=== PATIENT | female | born 1985 | race Caucasian/White ===

== ENCOUNTER 2017-05-10 11:51 | Outpatient (CLI) | payer OTHER ==
[~2017-05-10] VITALS: Ht 162.6 cm; Wt 88.2 kg
[2017-05-10 11:56] VITALS: Ht 162.6 cm; Wt 88.2 kg
[2017-05-10] MEDS ORDERED: PREN-93 PO (11:57)
[2017-05-10 12:48] VITALS: BP 110/66; PULSE 102; RESP 18
--- NOTE | 2017-05-10 12:51 | RADRPT ---
PROCEDURE: OB ultrasound for biophysical profile CLINICAL INDICATION: Post dates. TECHNIQUE: Multiple sonographic images of the pelvis were obtained. Transabdominal view of the gr avid uterus are available for review. The images were reviewed on a PACS workstation. COMPARISON: OB ultrasound from the same date. FINDINGS: breathing movement = 2/2 tone = 2/2 motion = 2/2 Quantitative amniotic fluid volume = 2/2 RM = 12.5 cm Single live intrauterine with cardiac activity at 165 beats per minute. There is a posterior placenta without previa or abruption. IMPRESSION: 1. Single living intrauterine gestation in cephalic position. 2. Biophysical profile = 8/8. 3. RM = 12.5 cm. RPTAT: [facility] Physician Alysa Date Time Electronically viewed and signed by Physician Alysa on 05/10/2017 12:51 /
--- NOTE | 2017-05-10 12:51 | RADRPT ---
PROCEDURE: OB ultrasound for biophysical profile CLINICAL INDICATION: Post dates. TECHNIQUE: Multiple sonographic images of the pelvis were obtained. Transabdominal view of the gr avid uterus are available for review. The images were reviewed on a PACS workstation. COMPARISON: OB ultrasound from the same date. FINDINGS: breathing movement = 2/2 tone = 2/2 motion = 2/2 Quantitative amniotic fluid volume = 2/2 MR = 12.5 cm Single live intrauterine with cardiac activity at 165 beats per minute. There is a posterior placenta without previa or abruption. IMPRESSION: 1. Single living intrauterine gestation in cephalic position. 2. Biophysical profile = 8/8. 3. RM = 12.5 cm. RPTAT: [facility] Physician Alysa Date Time Electronically viewed and signed by Physician Alysa on 05/10/2017 12:51 /
--- NOTE | 2017-05-10 12:53 | RADRPT ---
PROCEDURE: US OB. CLINICAL INDICATION: Post dates. TECHNIQUE: Multiple sonographic images of the pelvis were obtained. Transabdominal imaging only w as performed. The images were reviewed on a PACS workstation. COMPARISON: No prior studies are available for comparison. FINDINGS: There is a single living intrauterine gestation in cephalic position. There is an posterior placenta. There is no evidence of previa. Adequate amnionic fluid is demonstrated. The amniotic fluid index is 12.5 cm. Active cardiac motion is seen at 165 beats per minute. Estimated weight is 3800 plus or minus 570 g The biparietal diameter is 9.73 cm. The head circumference is 34.26 cm. The abdominal circumference is 35.83 cm. The femur length is 7.54 cm. Consistent with: 86-qnau-9-day gestation IMPRESSION: 1. Single living intrauterine gestation in cephalic position with a mean gestational age by ultraso und of 39 weeks 3 days plus or minus 19 days with estimated date of delivery of 05/14/2017 by ultras ound criteria. RPTAT: [facility] Physician Alysa Date Time Electronically viewed and signed by Physician Alysa on 05/10/2017 12:53 /
--- NOTE | 2017-05-10 13:42 | PN ---
Triage Information Date/Time Reason for visit: NST BPP postdate Weeks of Gestation 40+ /Para 1/0 Diabetes: none Hypertention: none Objective Vital Signs Date Time Temp Pulse Resp B/P Pulse Ox O2 Delivery O2 Flow Rate FiO2 05/10/17 12:48 98.3 102 18 110/66 100 Room Air Heart Rate: 140's Contractions: None Disposition: Discharge Assessment/Plan NST reactive BPP 02/05 40+wks She is scheduled for Induction on saturday . Instructions and precautions extensively discussed JESSICA HESS M.D. May 10, 2017 13:42
== END 2017-05-10 13:45 | disposition home or self-care (01) ==
LOC: OBT 11:51 → L-D 11:51 → OBT 13:45
PROVIDERS: ATTEND Specialist
DX: O48.0 Post-term pregnancy (principal); Z3A.40 40 weeks gestation of pregnancy
CPT/HCPCS: 76815; 76818; Z7500; G0463

== ENCOUNTER 2017-05-13 08:00 | Inpatient (IN) | payer OTHER ==
[~2017-05-13] VITALS: Ht 157.5 cm; Wt 88.0 kg
[~2017-05-13 08:00] MED LIST: PREN-93 PO
--- NOTE | 2017-05-13 08:53 | HP ---
Date/Time of Note Date/Time of Note DATE: 05/13/17 TIME: 08:48 OB - History Hx of Present Free Text/Dictation 31 y/o 1,EDC 05/07/17 admitted for induction of labor for postdates. EFW 3,800 grs Last Menstrual Period: Aug 07, 2016 Estimated Due Date: May 07, 2017 : 1 Care: Good Care Ultrasounds: Normal mid trimester US Obstetrical Complications: None Medical Complications: None Past Family/Social History * Past Medical, Surgical, Family and Obstetric Histories reviewed from chart. Blood Type: O+ Rubella: immune RPR/VDRL: Negative GBS Status: Negative HBsAG: Negative (Cervix;closed Vx, high) SARABJIT ORELLANA MD May 13, 2017 08:53
[2017-05-13 08:55] VITALS: BP 109/64; PULSE 105; RESP 18; Ht 157.5 cm; Wt 88.0 kg
[2017-05-13] MEDS ORDERED: IBUPROFEN 600 MG TAB PO PRN (09:00)
[2017-05-13] MEDS ORDERED: METHYLERGONOVINE 0.2 MG INJ IM PRN (09:00)
[2017-05-13] MEDS ORDERED: CARBOPROST 250 MCG INJ IM PRN (09:00)
[2017-05-13] MEDS ORDERED: MISOPROSTOL 100 MCG TAB VAG SCH (09:00)
[2017-05-13] MEDS ORDERED: OXYTOCIN 30 UNITS/LR 500 ML IV PRN (09:00)
[2017-05-13] MEDS ORDERED: MISOPROSTOL 200 MCG TAB PR PRN (09:00)
[2017-05-13] MEDS ORDERED: LIDOCAINE 1% (MPF) 30 ML INJ INJ PRN (09:00)
[2017-05-13] MEDS: LACTATED RINGER'S 1,000 ML IV SCH ×2 (09:04→15:48)
[2017-05-13 09:08] LABS: BASOPHILS % 0.3 % (0.0-2.0); EOSINOPHILS # 0.1 10^3/ul (0.0-0.5); EOSINOPHILS % 0.9 % (0.0-7.0); HEMATOCRIT 40.2 % (37.0-47.0); HEMOGLOBIN 13.6 g/dl (12.0-16.0); LYMPHOCYTES # 1.7 10^3/ul (0.8-2.9); LYMPHOCYTES % 14.1 % (15.0-51.0); MEAN CORPUSCULAR HEMOGLOBIN 25.7 pg (29.0-33.0); MEAN CORPUSCULAR HGB CONC 33.8 g/dl (32.0-37.0); MEAN PLATELET VOLUME 10.7 fl (7.4-10.4); MONOCYTE # 0.8 10^3/ul (0.3-0.9); MONOCYTES % 6.9 % (0.0-11.0); NEUTROPHIL # 9.1 10^3/ul (1.6-7.5); PLATELET COUNT 148 10^3/UL (140-415); RED BLOOD COUNT 5.29 10^6/ul (4.20-5.40); WHITE BLOOD COUNT 11.8 10^3/ul (4.8-10.8)
[2017-05-13 09:30] LABS: INR 0.87; PROTIME 11.8 Sec (12.2-14.2); PT RATIO 0.9
[2017-05-13 09:31] LABS: PARTIAL THROMBOPLASTIN TIME 23.4 Sec (25.0-35.0)
[2017-05-13] MEDS: MISOPROSTOL 25 MCG CAPSULE PO PRN ×3 (11:26→20:04)
[2017-05-13] MEDS ORDERED: MISOPROSTOL 25 MCG CAPSULE VAG SCH (13:00)
[2017-05-13] MEDS ORDERED: BUTORPHANOL 2 MG INJ ONE (14:04)
[2017-05-13] MEDS ORDERED: BUTORPHANOL 2 MG INJ IV PRN (14:30)
[2017-05-13] MEDS ORDERED: LACTATED RINGER'S 1,000 ML IV PRN (18:00)
[2017-05-13] MEDS ORDERED: FENTAnyl 2MCG/ML-ROPIV 0.2% 100 ML ONE (21:05)
[2017-05-13] MEDS ORDERED: NALOXONE (0.4 MG/ML) INJ IV PRN (21:30)
[2017-05-14] MEDS ORDERED: OXYTOCIN 30 UNITS/LR 500 ML IV SCH ×3
[2017-05-14] MEDS: LACTATED RINGER'S 1,000 ML IV SCH ×4 (00:15→22:59)
[2017-05-14] MEDS: FENTAnyl 2MCG/ML-ROPIV 0.2% 100 ML BAG EPI SCH ×2 (03:54→10:32)
--- NOTE | 2017-05-14 07:40 | PN ---
Date/Time of Note Date/Time of Note DATE: 05/14/17 TIME: 07:38 OB Subjective Subjective Subjective Spontaneous SROM early this morning.Clear fluid. Epidural working well. OB Objective Objective Objective Contractions every 3 minutes. FHR: category 1 HEENT: WNL Heart: Rhythm Normal Lungs: Clear Abdomen: WNL Extremities: Normal Reflexes: Normal Cervical Dilatation: 2cm Effacement: 75% Station: -3 Membranes: Ruptured Amniotic Fluid: Clear Heart Rate: 130's Accelerations: Accelerations Present Decelerations: No Decelerations Contractions on Admission: < 5 Minutes Apart Intensity: Moderate SARABJIT ORELLANA MD May 14, 2017 07:40
[2017-05-14] MEDS ORDERED: ONDANSETRON 4 MG INJ IV STA (12:53)
[2017-05-14] MEDS ORDERED: LACTATED RINGER'S 1,000 ML IV SCH (12:57)
[2017-05-14] MEDS ORDERED: CARBOPROST 250 MCG INJ IM PRN ×2 (13:00→15:00)
[2017-05-14] MEDS ORDERED: CITRIC ACID/SODIUM CITRATE 15 ML CUP PO ONE (13:00)
[2017-05-14] MEDS ORDERED: OXYTOCIN 30 UNITS/LR 500 ML IV PRN ×2 (13:00→15:00)
[2017-05-14] MEDS ORDERED: CEFAZOLIN 2 GM/50 ML (PMX) 50 ML IV SCH ×2 (13:00→15:00)
[2017-05-14] MEDS ORDERED: MISOPROSTOL 200 MCG TAB PR PRN ×2 (13:00→15:00)
[2017-05-14] MEDS ORDERED: METHYLERGONOVINE 0.2 MG INJ IM PRN ×2 (13:00→15:00)
[2017-05-14] MEDS ORDERED: METOCLOPRAMIDE 10 MG INJ ONE (13:47)
[2017-05-14] MEDS ORDERED: PHENYLephrine (100 MCG/ML) 5ML SYG ONE (13:47)
[2017-05-14] MEDS ORDERED: FENTAnyl 50 MCG/ML VIAL ONE (13:47)
[2017-05-14] MEDS ORDERED: OXYTOCIN 10 UNIT INJ ONE (13:47)
[2017-05-14] MEDS ORDERED: morphine SULFATE/PF (10 MG/10 ML) INJ ONE (13:47)
--- NOTE | 2017-05-14 14:08 | PREOPHP ---
DATE OF ADMISSION: 05/13/2017 The anesthesiologist will be Dr. Merrill. HISTORY OF PRESENT ILLNESS: This is a 31-year-old female primigravida who was brought in at 40 week s and 5 days gestation for induction of labor for post-dates. Her EDC confirmed by early ultrasound was 05/07/2017. She had a totally uncomplicated course. Induction was started with Cytot ec p.o. 50 mcg every 6 hours. She had 3 doses. She started tucker and ruptured spontaneously. Early this morning an epidural was started and she has been comfortable ever since. Pitocin was s tarted to reinitiate the induction of labor. In spite of good contractions, there has been no borges e in cervix and remained 2 cm and 90% effaced with the baby ballottable up in the abdomen. The amni otic fluid was noticed to be clear. In view of the lack of progress and the floating head, the astrid ent was counseled to have this baby by section. The alternatives are continuing induction. The benefits, risks, and possible complications were discussed with the patient. She was allowed to ask questions and all her questions were answered to her satisfaction. She signed the appropriat e surgical informed consent. PAST MEDICAL HISTORY: Entirely unremarkable. There is no history of cardiac disease, hypertension, diabetes, liver disease, kidney disease, or neurological problems. ALLERGIES: NO KNOWN ALLERGIES. MEDICATIONS: She has been taking only vitamins on a regular basis. She has been overweight for the better part of her life. FAMILY HISTORY: Noncontributory. REVIEW OF SYSTEMS: A 12-point review of systems is noncontributory. PHYSICAL EXAMINATION: GENERAL: Well-developed and nourished, in no distress, alert and oriented x3. VITAL SIGNS: Showed the temperature to be 98, blood pressure 120/70, respirations are 16/minute, th e pulse is 80/minute, regular. HEENT: Within normal limits. Pupils are PERRLA. NECK: Supple. Thyroid is nonpalpable. There is no lymphadenopathy. BREASTS: Normal. No masses or lumps. LUNGS: Clear to percussion and auscultation. HEART: Revealed normal sinus rhythm without a murmur. ABDOMEN: Soft without organomegalies or hernias. Uterus enlarged to 38 cm above the pubic bone, si ngle baby, longitudinal lie, cephalic presentation. heart rate is category 1 on the mon itor. PELVIC: Cervix is still 2 cm dilated, 90% effaced with baby high, ballottable in the abdomen. EXTREMITIES: Within normal limits. NEUROLOGIC: Also normal. IMPRESSION: 1. A 40 weeks and 6 days' gestation. 2. Failure to progress in labor. Suspected cephalopelvic disproportion. 3. Obesity. PLAN: The patient is to be delivered by primary section. Dictated By: SARABJIT ORELLANA MD CR/NTS Conf#: [id number] DID#: [id number] CC: SARABJIT ORELLANA MD; CAPO VIEIRA MD;*EndCC*
[2017-05-14] MEDS ORDERED: DIPHENHYDRAMINE 50 MG INJ IV PRN ×2 (14:30)
[2017-05-14] MEDS ORDERED: ONDANSETRON 4 MG INJ IV PRN ×2 (14:30)
[2017-05-14] MEDS ORDERED: TRIMETHOBENZAMIDE 100 MG/ML VIAL IM PRN ×2 (14:30)
[2017-05-14] MEDS ORDERED: NALBUPHINE HCL (10 MG/1 ML) INJ IV PRN (14:30)
[2017-05-14] MEDS ORDERED: EPHEDrine SULFATE 50 MG/5 ML SYG IV PRN (14:30)
[2017-05-14] MEDS ORDERED: morphine 2 MG INJ IV PRN (14:30)
[2017-05-14] MEDS ORDERED: NALOXONE (0.4 MG/ML) INJ IV PRN (14:30)
[2017-05-14] MEDS ORDERED: KETOROLAC 30 MG INJ IV PRN (14:30)
[2017-05-14] MEDS ORDERED: morphine 4 MG/ML VIAL IV PRN (14:30)
[2017-05-14] MEDS ORDERED: OXYCODONE/ACETAMINOPHEN (5/325) TAB PO PRN ×3 (14:30→15:00)
[2017-05-14] MEDS ORDERED: LABETALOL HCL 20MG INJ IV PRN (14:30)
[2017-05-14] MEDS ORDERED: ALBUTEROL 0.083% (NEB) 2.5 MG/3 ML AMP HHN PRN (14:30)
[2017-05-14] MEDS ORDERED: hydrALAzine 20 MG INJ IV PRN (14:30)
[2017-05-14] MEDS ORDERED: MEPERIDINE 25 MG INJ IV PRN (14:30)
[2017-05-14] MEDS ORDERED: FENTAnyl 50 MCG/ML VIAL IV PRN ×3 (14:30)
[2017-05-14] MEDS ORDERED: IPRATROPIUM (NEB) 0.5 MG/2.5 ML AMP HHN PRN (14:30)
[2017-05-14] MEDS ORDERED: HYDROmorphONE (0.2 MG/ML) 10ML SYG IV PRN ×3 (14:30)
[2017-05-14] MEDS ORDERED: LANOLIN 7 GM TUBE TOP PRN (15:00)
--- NOTE | 2017-05-14 15:08 | SIPON ---
Date/Time of Note Date/Time of Note See dictated note DATE: 05/14/17 TIME: 15:03 Operative Report Preoperative Diagnosis 41 weeks gestation.Failure to progress. Postoperative Diagnosis Same plus large left dermoid ovarian cyst. Operation/Procedure Performed .Left ovarian cystectomy. Surgeon Dr.Carlos Tish MD financial administrative assistant Dr Fidencio Mahan MD Anesthesia: spinal Estimated blood loss: other Transfusion Required none Specimen Ovarian cyst. Grafts/Implants none Complications none SARABJIT ORELLANA MD May 14, 2017 15:08
[2017-05-14] MEDS: OXYTOCIN 30 UNITS/LR 500 ML IV SCH (15:20)
--- NOTE | 2017-05-14 15:46 | OPR ---
DATE OF OPERATION: PREOPERATIVE DIAGNOSES: 1. 41 weeks' gestation. 2. Failure to progress in labor. 3. Suspected cephalopelvic disproportion. 4. Obesity. POSTOPERATIVE DIAGNOSES: 1. 41 weeks' gestation. 2. Failure to progress in labor. 3. Suspected cephalopelvic disproportion. 4. Obesity. 5. Large left ovarian dermoid cyst. PROCEDURE: Primary low segment section and left ovarian cystectomy. SURGEON: Sarabjit Rodriguez MD REMOVABLE PROSTHODONTIST: Fidencio Vieira MD ANESTHESIA: Epidural and spinal by Dr. Moreno. ESTIMATED BLOOD LOSS: 800 mL. COMPLICATIONS: None. SPECIMENS: Left ovarian cyst was sent to pathology. PROCEDURE AND FINDINGS: With the patient under spinal anesthesia, lying on the table in the dorsal recumbent position, tilted to the left, she had a Bernstein catheter draining her bladder. Her abdomen and upper thighs were prepped with ChloraPrep and after 3 minutes, draped in the usual sterile fashion for this procedure. A Pfannenstiel incision was done and carried through all layers to abdominal wall. Once in the abdomen, the uterine segment was opened transversely and a living male child was delivered from left occiput posterior position. There was meconium-stained fluid that was immediately suctioned out of the baby's mouth and nose. Baby was handed to the respiratory team delinquency prevention social worker, who found him to have scores of 9 at first minute and 9 at five minutes. The weight of the baby was 8 pounds 11 ounces. Placenta was delivered. The uterine cavity cleaned with a clean moist laparotomy pad. Left large ovary was found and large dermoid cyst, measuring about 10 to 12 cm in diameter. The right ovary was normal. The uterine cavity was cleansed again and then the incision in the uterus closed with a continuous running stitch of 0 PDS in a double layer fashion. Good hemostasis was obtained. The ovary was isolated between 2 clean moist towels. The surface was opened and the cyst was dissected from the ovary. A very firmly adherent area was difficult to dissect and it was trimmed off with part of the normal ovary. Once the specimen was removed, we changed our gloves and again changed towels around the left ovary. It was repaired with double 0 chromic catgut on an SH needle. Good hemostasis was obtained. The pelvis was thoroughly washed with warm water. It was cleansed of all debris and clots. Then, the incisions were checked for bleeders , there were none. The left ovary was wrapped up on Interceed to avoid future adhesions. The abdomen was closed in layers, starting with the peritoneum with a continuous running stitch of double 0 chromic catgut. The fascia was closed with 2 convergent running sutures of 0 Vicryl. Finally, the edges of the skin were brought together with absorbable vito. Sterile pressure dressing was applied and patient was taken to recovery room with all vital signs stable. EBL was 800 mL of blood. Needle, sponge and instrument count at the end of the procedure was correct twice. Dictated By: SARABJIT RODRIGUEZ MD CR/NTS Conf#: [id number] DID#: [id number] CC: HOWARD MORENO MD; FIDENCIO VIEIRA MD;*EndCC* MTDD
[2017-05-14] MEDS: KETOROLAC 30 MG INJ IV SCH ×2 (17:27→23:30)
[2017-05-14 18:15] VITALS: BP 106/55; PULSE 88; RESP 19
[2017-05-14 18:30] VITALS: BP 106/54; PULSE 97; RESP 19
[2017-05-14 20:00] VITALS: BP 102/51; PULSE 98; RESP 18
[2017-05-14] MEDS: CEFAZOLIN 2 GM/50 ML (PMX) 50 ML IVPB SCH (21:32)
[2017-05-14] MEDS: SENNA/DOCUSATE NA (8.6MG/50MG) TAB PO SCH (21:32)
[2017-05-14] MEDS: IBUPROFEN 800 MG TAB PO SCH (22:00)
[2017-05-14 23:28] VITALS: BP 102/59; PULSE 98; RESP 20
[2017-05-15] MEDS: OXYTOCIN 30 UNITS/LR 500 ML IV SCH (03:01)
[2017-05-15 04:20] VITALS: BP 90/54; PULSE 99; RESP 18
[2017-05-15] MEDS: CEFAZOLIN 2 GM/50 ML (PMX) 50 ML IVPB SCH ×2 (05:33→13:34)
[2017-05-15] MEDS: KETOROLAC 30 MG INJ IV SCH ×2 (05:33→11:30)
[2017-05-15] MEDS: IBUPROFEN 800 MG TAB PO SCH ×3 (06:00→21:01)
[2017-05-15] MEDS: LACTATED RINGER'S 1,000 ML IV SCH (07:56)
[2017-05-15 08:00] VITALS: BP 73/52; PULSE 95; RESP 18
--- NOTE | 2017-05-15 08:06 | PN ---
Date/Time of Note Date/Time of Note DATE: 05/15/17 TIME: 08:03 OB Subjective Subjective Subjective Doing well,in good spirits this morning. OB Objective Objective Objective Afebrile.Stable. Lochia normal.Dressing intact. cbc pending. HEENT: WNL Heart: Rhythm Normal Lungs: Clear Abdomen: WNL Extremities: Normal SARABJIT ORELLANA MD May 15, 2017 08:06
[2017-05-15] MEDS: SENNA/DOCUSATE NA (8.6MG/50MG) TAB PO SCH ×2 (08:30→21:01)
[2017-05-15] MEDS: OXYCODONE/ACETAMINOPHEN (5/325) TAB PO PRN ×2 (10:02→14:57)
[2017-05-15 10:39] LABS: BASOPHIL # 0.1 10^3/ul (0.0-0.1); BASOPHILS % 0.3 % (0.0-2.0); EOSINOPHILS % 0.2 % (0.0-7.0); HEMATOCRIT 27.2 % (37.0-47.0); HEMOGLOBIN 9.1 g/dl (12.0-16.0); LYMPHOCYTES # 1.1 10^3/ul (0.8-2.9); MEAN CORPUSCULAR HEMOGLOBIN 25.4 pg (29.0-33.0); MEAN CORPUSCULAR HGB CONC 33.5 g/dl (32.0-37.0); MEAN PLATELET VOLUME 11.5 fl (7.4-10.4); MONOCYTE # 0.9 10^3/ul (0.3-0.9); NEUTROPHIL # 13.4 10^3/ul (1.6-7.5); NEUTROPHILS % 85.7 % (39.0-77.0); PLATELET COUNT 148 10^3/UL (140-415); RED BLOOD COUNT 3.58 10^6/ul (4.20-5.40); RED CELL DISTRIBUTION WIDTH 14.3 % (11.5-14.5); WHITE BLOOD COUNT 15.6 10^3/ul (4.8-10.8)
[2017-05-15 16:00] VITALS: BP 92/51; PULSE 107; RESP 18
[2017-05-15 19:40] VITALS: BP 97/46; PULSE 99; RESP 18
[2017-05-16] MEDS: OXYCODONE/ACETAMINOPHEN (5/325) TAB PO PRN ×3 (01:40→17:24)
[2017-05-16 04:15] VITALS: PULSE 88; RESP 17
[2017-05-16] MEDS: IBUPROFEN 800 MG TAB PO SCH ×3 (05:35→23:29)
[2017-05-16 09:00] VITALS: BP 99/56; PULSE 101; RESP 22
[2017-05-16 09:51] VITALS: BP 99/56; PULSE 101; RESP 24
[2017-05-16] MEDS: SENNA/DOCUSATE NA (8.6MG/50MG) TAB PO SCH ×2 (10:06→21:07)
--- NOTE | 2017-05-16 10:06 | PN ---
Date/Time of Note Date/Time of Note DATE: 05/16/17 TIME: 10:03 OB Subjective Subjective Subjective Doing well,up and about. Reports passing gases,no BM yet. Showered today,incision healing well. OB Objective Objective Objective Afebrile. Doing well. Possible discharge tomorrow. HEENT: WNL Heart: Rhythm Normal Lungs: Clear Abdomen: WNL Extremities: Normal SARABJIT ORELLANA MD May 16, 2017 10:06
--- NOTE | 2017-05-16 10:08 | PD.PPDC ---
DRUG ENFORCEMENT ADMINISTRATION AGENT Discharge Instruction Diagnosis Final Diagnosis: 41 weeks gestation.Failure to progres in labor.Suspected CPD.Baby boy Condition Patient Condition: Good Diet Diet: Resume Regular Diet Activity/Restrictions Activity: Normal Activity May Shower Restrictions: No Exercising No Lifting No Sexual Activity Nothing in the Vagina No [place] Wound/Drain Care Instructions Wound/Drain Care Instructions: Wash with soap and water Keep clean and dry Follow-up Follow-up with Physician: 1, Week/Weeks Return to clinic for FIELD CONTACT TECHNICIAN Instructions: Fever greater than 101 Worsening abdominal pain Excessive Vaginal Bleeding Unable to tolerate diet OB Instructions: Breast Tenderness Depression Surgical Instructions: Incisional Drainage Incisional Redness (Shower daily and wash hair as usual) SARABJIT ORELLANA MD May 16, 2017 10:08
--- NOTE | 2017-05-16 15:48 | DS ---
DATE OF ADMISSION: 05/13/2017 DATE OF DISCHARGE: 05/17/2017 FINAL DIAGNOSES: 1. Forty-one weeks' gestation. 2. Failure to progress in labor. Suspected CPD. 3. Obesity. SUMMARY: This is a 32-year-old female primigravida who was brought in at 40 weeks and 6 days gestat formerly [facility] for induction of labor. After 48 hours of labor after rupture of membranes spontaneously with n o further descent of presenting part. She was delivered by . A baby boy that had sc ores of 9 and 9. Incidentally, she was found to have a large left ovarian dermoid cyst. A cystecto my was done at the time of the section. The cyst was sent to pathology. Postoperatively, both mother and baby have done well. She is ambulatory today, passing gas with no problem. Incisio n looks well healing with no problem at all. She is to be discharged home tomorrow 05/17/2017. Dis charge written instructions and a regular diet. She is to follow up with me in the office in 1 week and was given a prescription for Percocet 40 tablets to use 1 or 2 tablets every 6 hours p.r.n. kuldip n. Dictated By: SARABJIT KATZ/KOMAL Conf#: [id number] DID#: [id number]
[2017-05-16 16:15] VITALS: BP 99/65; PULSE 87; RESP 16
[2017-05-16 20:15] VITALS: BP 116/69; PULSE 101; RESP 18
[2017-05-17] MEDS: OXYCODONE/ACETAMINOPHEN (5/325) TAB PO PRN ×2 (01:12→09:56)
[2017-05-17 04:20] VITALS: BP 117/65; PULSE 82; RESP 18
[2017-05-17] MEDS: IBUPROFEN 800 MG TAB PO SCH (06:00)
[2017-05-17 08:15] VITALS: BP 107/69; PULSE 94; RESP 17
[2017-05-17] MEDS: SENNA/DOCUSATE NA (8.6MG/50MG) TAB PO SCH (08:41)
[2017-05-17 08:45] VITALS: BP 101/69; PULSE 89; RESP 16
[2017-05-17] MEDS ORDERED: DIPHTH/TET/ACEL PERTUSS (ADULT) 0.5 ML VIAL IM* ONE (09:00)
== END 2017-05-17 12:42 | disposition home or self-care (01) | DRG 766 ==
LOC: L-D 08:03 → PP1 05-14 17:55
PROVIDERS: ADMIT Specialist; ATTEND Specialist
PROC: 3E0D7GC Introduction of Other Therapeutic Substance into Mouth and Pharynx, Via Natural or Artificial Opening (ICD-10-PCS; 2017-05-13)
PROC: 0UB10ZZ Excision of Left Ovary, Open Approach (ICD-10-PCS; 2017-05-14)
PROC: 10D00Z1 Extraction of Products of Conception, Low, Open Approach (ICD-10-PCS; principal; 2017-05-14 13:45)
DX: O48.0 Post-term pregnancy (principal); O99.214 Obesity complicating childbirth; E66.9 Obesity, unspecified; D27.1 Benign neoplasm of left ovary; Z68.35 Body mass index [BMI] 35.0-35.9, adult; O62.0 Primary inadequate contractions; O34.83 Maternal care for other abnormalities of pelvic organs, third trimester; O33.9 Maternal care for disproportion, unspecified; Z3A.41 41 weeks gestation of pregnancy; Z37.0 Single live birth
CPT/HCPCS: 62319; 85025; 85610; 85730; 86592; 86900; 86901; 88305; 90715; 94760; 99464; J0595; J0690; J1885; J2210; J2274; J2370; J2405; J2590; J2765; J3010; J7120